=== PATIENT | male | born 1940 | race Asian ===

== ENCOUNTER 2019-07-02 21:50 | Inpatient (IN) | payer MEDICARE, OTHER ==
[~2019-07-02] VITALS: Ht 175.3 cm; Wt 87.3 kg
[2019-07-03] VITALS (7 sets, daily range): BP systolic 95–134; BP diastolic 40–90
--- NOTE | 2019-07-03 | NUR ---
TD RN OPENING NOTE REPORT RECEIVED BY ONEAL FROM [place]. PATIENT ARRIVED IN [facility]. PATIENT IS A/OX4 DANISH SPEAKER. NO SIGN OF DISTRESS OR DISCOMFORT. 02 SAT ON ROOM AIR IS 96%. HAS THREE IV ACCESS, RT FOREARM #20, LT FOREARM #20, AND LT UPPERARM #20 ALL PATENT AND FLUSHED. PATIENT DOES NOT COMPLAIN OF ANY PAIN AT THE MOMENT. SINUS RHYTHM ON THE MONITOR. LUNGS SOUNDS CLEAR. SKIN IS INTACT JUST MINOR COMPUTER CLERK AND BRUISES. ALL SAFETY PRECAUTIONS HAVE BEEN APPLIED, WILL CONTINUE TO MONITOR PATIENT.
[2019-07-03] MEDS ORDERED: LENA5CAP PO (00:47)
[2019-07-03] MEDS ORDERED: ATOR10TA PO (00:47)
[2019-07-03] MEDS ORDERED: CLON2TAB11 PO (00:47)
[2019-07-03] MEDS ORDERED: RANI150C4 PO (00:47)
[2019-07-03] MEDS ORDERED: QUET50TA PO (00:48)
[2019-07-03] MEDS ORDERED: FINA5TAB11 PO (00:48)
[2019-07-03] MEDS ORDERED: ABIR250T PO (00:48)
[2019-07-03] MEDS ORDERED: BICA50TA49 PO (00:48)
[2019-07-03] MEDS ORDERED: AMYL1CAP58 PO (00:48)
[2019-07-03] MEDS ORDERED: RAMI10CA69 PO (00:48)
[2019-07-03] MEDS ORDERED: BUDE90AE IH (00:48)
[2019-07-03] MEDS ORDERED: PRED5TAB48 PO (00:48)
[2019-07-03] MEDS ORDERED: ESOM20CA PO (00:48)
[2019-07-03] MEDS ORDERED: LINA145C PO (00:48)
[2019-07-03] MEDS ORDERED: ACET12.53 PO (00:48)
[2019-07-03] MEDS ORDERED: HYDR-4354 PO (00:48)
[2019-07-03] MEDS ORDERED: HYDROCODONE/APAP 5/325MG 1 EACH TABLET PO PRN (01:30)
[2019-07-03] MEDS ORDERED: MAG HYDROX/AL HYDROX/SIMETH 30 ML UDC PO PRN (01:30)
[2019-07-03] MEDS ORDERED: ONDANSETRON HCL/PF 4 MG/2 ML VIAL IVP PRN (01:30)
[2019-07-03] MEDS ORDERED: ACETAMINOPHEN 325 MG TABLET PO PRN (01:30)
[2019-07-03] MEDS ORDERED: Z GUARD REMEDY 2 OZ OINT TP PRN (01:30)
[2019-07-03] MEDS: IV NS 0.9% 1,000 ML IV SCH ×3 (01:51→20:52)
[2019-07-03 01:53] LABS: BASOPHILS % (AUTO) 1.2 % (0.0-2.0); EOSINOPHILS % (AUTO) 3.3 % (0.0-6.0); HEMATOCRIT 31 % (39-51); HEMOGLOBIN 10.3 g/dL (13.5-17.5); LYMPHOCYTES # (AUTO) 1.4 /CMM (0.8-4.8); LYMPHOCYTES % (AUTO) 34.5 % (20.0-44.0); MEAN CORPUSCULAR HGB CONC 33 g/dl (31.0-36.0); MEAN CORPUSCULAR VOLUME 88 fL (80-96); MONOCYTES # (AUTO) 0.4 /CMM (0.1-1.30); MONOCYTES % (AUTO) 9.8 % (2.0-12.0); NEUTROPHILS % (AUTO) 51.2 % (43.0-81.0); PLATELET COUNT (AUTO) 172 /CMM (150-450); RED BLOOD CELL COUNT(AUTO) 3.51 MIL/uL (4.5-6.0)
[2019-07-03 02:03] LABS: ALBUMIN 2.2 g/dL (3.4-5.0); BILIRUBIN,TOTAL 0.7 mg/dL (0.2-1.0); CALCIUM, SERUM 7.1 mg/dL (8.5-10.1); CREATININE 0.9 mg/dL (0.6-1.3); TOTAL PROTEIN, SERUM 5.2 g/dL (6.4-8.2)
[2019-07-03 02:18] LABS: POTASSIUM 2.8 mmol/L (3.5-5.1)
--- NOTE | 2019-07-03 02:20 | NUR ---
RN NOTE: RECEIVED A CALL FROM LAB, SPOKE WITH Dari LOPEZ+ [id number]. PAGED DR. NEWMAN, AWAITING FOR ORDERS. WILL NOTIFY PRIMARY NURSE. Addendum: 07/03/19 at 0247 by DAVID PAVON RN RN NOTE: 0232: RECEIVED NEW ORDERS FROM DR. NEWMAN.
[2019-07-03] MEDS ORDERED: POTASSIUM CHLORIDE 20 MEQ TAB.PRT.SR PO ONE (03:00)
[2019-07-03] MEDS: POTASSIUM CL. PREMIX PERIPHER. 50 ML IV SCH ×4 (03:33→06:55)
--- NOTE | 2019-07-03 05:56 | NUR ---
RN NOTE MRSA SWAB SAMPLE WAS GIVEN TO JORGE FROM THE LAB.
[2019-07-03] MEDS ORDERED: CODEINE PO SCH (06:00)
[2019-07-03] MEDS ORDERED: ACETAMINOPHEN PO SCH (06:00)
[2019-07-03] MEDS ORDERED: ACETAMINOPHEN W/ CODEINE#3 1 EA TABLET PO PRN (07:00)
--- NOTE | 2019-07-03 07:20 | NUR ---
RN OPENING NOTES PT IS ASLEEP IN BED WITH HOB ELEVATED TO 45 DEGREES. PT HAS ZEB IV 20 GAUGE RUNNING NS @ 100 MLS/HR. PT IS SR IN 67 HR ON TELE MONITOR. PT SHOWS NO SIGNS OF SOB OR PAIN AT PRESENT MOMENT. BED IS LOCKED AND IN LOWEST POSITION WITH CALL LIGHT IN REACH. WILL CONTINUE TO MONITOR.
--- NOTE | 2019-07-03 07:21 | NUR ---
TD RN CLOSING NOTE PATIENT IN BED WITH NO SIGNS OF DISTRESS. PATIENT REMAINS ON 2L OF O2 SATURATING AT 97%. PATIENT ON MONITOR IS SINUS RHYTHM WITH HR IN 60'S/ NO COMPLAINT OF PAIN. ALL SAFETY PRECAUTIONS APPPLIED. ENDORSED PATIENT TO MORNING SHIFT NURSE.
[2019-07-03] MEDS: clonazePAM 1 MG TABLET PO SCH ×2 (08:15→20:49)
[2019-07-03] MEDS: PANTOPRAZOLE 40 MG TABLET.DR PO SCH (08:15)
[2019-07-03] MEDS: FINASTERIDE (5 MG) 5 MG TABLET PO SCH (08:16)
[2019-07-03 08:41] LABS: THYROID STIMULATING HORMONE 2.567 uIU/mL (0.358-3.74)
[2019-07-03] MEDS: LIPASE/PROTEASE/AMYLASE 1 EACH CAPSULE.DR PO SCH ×3 (08:47→18:15)
[2019-07-03] MEDS: ENOXAPARIN SODIUM 40 MG/0.4 ML DISP.SYRIN SQ SCH (09:00)
[2019-07-03] MEDS ORDERED: BICALUTAMIDE 50 MG TABLET PO SCH (09:00)
[2019-07-03] MEDS ORDERED: LENALIDOMIDE 5 MG PO SCH (09:00)
[2019-07-03] MEDS ORDERED: ABIRATERONE ACETATE 250 MG PO SCH (09:00)
[2019-07-03] MEDS ORDERED: BUDESONIDE 90 MCG IH SCH (09:00)
[2019-07-03] MEDS: predniSONE 5 MG TABLET PO SCH (09:45)
[2019-07-03] MEDS: RAMIPRIL 5 MG CAPSULE PO SCH ×2 (09:46→20:49)
[2019-07-03] MEDS: MAGNESIUM HYDROXIDE 30 ML UDC PO PRN (09:48)
[2019-07-03] MEDS: BUDESONIDE RESPULE INH 0.25 MG/2 ML AMPUL.NEB NEB SCH ×2 (10:43→19:37)
--- NOTE | 2019-07-03 10:59 | NUR ---
SPOKE WITH PT ABOUT HOME MEDIATIONS PER PT HE HAS NO ONE AT HOME THAT CAN BRING THEM TO HIM. INFORMED PHARMACY. WILL TRY TO OBTAIN PT'S PERSONAL PHARMACY.
--- NOTE | 2019-07-03 16:00 | NUR ---
PT FRIEND RAY CAME BEDSIDE AND EXPRESSED CONCERN OVER PT LIVING ARRANGEMENT REQUESTED TO MEET WITH BREWERY TECHNICIAN SASKIA SINCE PT LIVES AT HOME ALONE.
[2019-07-03] MEDS: FAMOTIDINE (20 MG) 20 MG TABLET PO SCH (18:15)
--- NOTE | 2019-07-03 18:55 | NUR ---
RN CLOSING NOTES PT DENIES ANY PAIN OR SOB AT PRESENT MOMENT PT IS SR ON TELE MONITOR AND CONTINUES TO BE ON O2 2 L NC. PT HAS NS RUNNING AT 100 MLS/HR. PT IS A&OX4 AND IS ABLE TO MAKE NEEDS KNOWN. BED IS LOCKED AND IN LOWEST POSITION WITH CALL LIGHT IN REACH. WILL ENDORSE EMANUEL TO RETAIL DELIVERY DRIVER RN.
[2019-07-03] MEDS: BICALUTAMIDE 50 MG TABLET PO SCH (20:47)
[2019-07-03] MEDS ORDERED: ATORVASTATIN 10 MG TABLET PO SCH (22:00)
[2019-07-03] MEDS: QUETIAPINE FUMARATE 25 MG TABLET PO SCH (22:00)
[2019-07-04] VITALS: BP_SYST 144; BP_SYST 147; BP_DIAS 65; BP_DIAS 89
[2019-07-04 04:00] VITALS: BP 146/60
--- NOTE | 2019-07-04 06:14 | NUR ---
RN NOTES IN BED RESTING COMFORTABLY WITH NO APPARENT DISTRESS. BREATHING EVEN AND UNLABORED. ON 2 LPM O2 VIA NASAL CANNULA TOLERATING WELL. NO COMPLAINT OF PAIN OR DISCOMFORT. ALERT AND ORIENTED WITH EPISODES OF CONFUSION. ABLE TO VERBALIZE NEEDS. VITAL SIGNS WITH NORMAL LEVEL. KEPT CLEAN AND DRY. WILL ENDORSE TO AM SHIFT FOR CONTINUITY OF CARE.
[2019-07-04 06:24] LABS: BASOPHILS % (AUTO) 0.4 % (0.0-2.0); EOSINOPHILS % (AUTO) 2.9 % (0.0-6.0); HEMATOCRIT 29 % (39-51); HEMOGLOBIN 9.4 g/dL (13.5-17.5); LYMPHOCYTES # (AUTO) 1.3 /CMM (0.8-4.8); LYMPHOCYTES % (AUTO) 28.1 % (20.0-44.0); MEAN CORPUSCULAR HGB CONC 33 g/dl (31.0-36.0); MEAN CORPUSCULAR VOLUME 89 fL (80-96); MONOCYTES # (AUTO) 0.4 /CMM (0.1-1.30); MONOCYTES % (AUTO) 8.8 % (2.0-12.0); NEUTROPHILS # (AUTO) 2.7 /CMM (1.8-8.9); NEUTROPHILS % (AUTO) 59.8 % (43.0-81.0); PLATELET COUNT (AUTO) 151 /CMM (150-450); RED BLOOD CELL COUNT(AUTO) 3.22 MIL/uL (4.5-6.0); WHITE BLOOD COUNT (AUTO) 4.6 K/uL (4.3-11.0)
[2019-07-04 06:37] LABS: ALBUMIN 2.2 g/dL (3.4-5.0); BILIRUBIN,TOTAL 0.5 mg/dL (0.2-1.0); CREATININE 0.6 mg/dL (0.6-1.3); MAGNESIUM 1.9 mg/dL (1.8-2.4); PHOSPHORUS 1.5 mg/dL (2.5-4.9); POTASSIUM 3.4 mmol/L (3.5-5.1); TOTAL PROTEIN, SERUM 5.3 g/dL (6.4-8.2)
[2019-07-04] MEDS: IV NS 0.9% 1,000 ML IV SCH (06:56)
[2019-07-04 08:00] VITALS: BP 145/56
--- NOTE | 2019-07-04 08:00 | NUR ---
TD1/RN AM SHIFT INITIAL NOTES RECEIVED PT AWAKE IN BED, A/O X 4, DENIES ANY SYMPTOMS, NO ACUTE CHANGE OF CONDITION. ON 2L O2 VIA N/C SATURATING @ 99%, RESPIRATIONS EVEN & UNLABORED, LUNG SOUNDS NOTED WITH WHEEZING. NOTED WITH NON-PRODUCTIVE COUGH. ON TELE WITH SINUS RHYTHM, HR 81. PT WITH ON GOING IV INFUSION OF NS @ 100CC/HR, IV SITE, WITH NO S/S OF INFECTION. PT IS COMFORTABLE, SCHEDULED AM MED TO BE GIVEN. CL WITHIN REACHED AND SAFETY MAINTAINED. ON GOING MONITORING.
[2019-07-04] MEDS: BUDESONIDE RESPULE INH 0.25 MG/2 ML AMPUL.NEB NEB SCH ×2 (08:11→20:05)
[2019-07-04] MEDS: predniSONE 5 MG TABLET PO SCH (08:53)
[2019-07-04] MEDS: PANTOPRAZOLE 40 MG TABLET.DR PO SCH (08:53)
[2019-07-04] MEDS: clonazePAM 1 MG TABLET PO SCH ×2 (08:54→21:22)
[2019-07-04] MEDS: LIPASE/PROTEASE/AMYLASE 1 EACH CAPSULE.DR PO SCH ×3 (08:55→18:10)
[2019-07-04] MEDS: RAMIPRIL 5 MG CAPSULE PO SCH ×2 (08:55→21:26)
[2019-07-04] MEDS: FINASTERIDE (5 MG) 5 MG TABLET PO SCH (08:55)
[2019-07-04] MEDS: ENOXAPARIN SODIUM 40 MG/0.4 ML DISP.SYRIN SQ SCH (08:57)
[2019-07-04] MEDS ORDERED: POTASSIUM CHLORIDE 20 MEQ TAB.PRT.SR PO SCH (10:30)
[2019-07-04] MEDS ORDERED: K PHOS NEUTRAL 250 MG TABLET PO ONE (11:00)
--- NOTE | 2019-07-04 11:10 | NUR ---
TD/RN ROUNDS - DR. THURSTON PT SEEN & EXAMINED BY DR. THURSTON. NO NEW ORDERS RECEIVED AT THIS TIME. MONITORING MONITORING.
[2019-07-04 12:00] VITALS: BP 143/78
[2019-07-04] MEDS: LEVALBUTEROL HCL NEB 1.25 MG/0.5 ML VIAL.NEB IH SCH ×3 (13:02→23:31)
[2019-07-04 16:00] VITALS: BP_SYST 109; BP_SYST 137; BP_DIAS 52; BP_DIAS 70
[2019-07-04] MEDS: FAMOTIDINE (20 MG) 20 MG TABLET PO SCH (18:10)
--- NOTE | 2019-07-04 19:35 | NUR ---
WELT EDGE ROUNDER OPENING NOTES, RECEIVED PATIENT FROM AM RN IN BED AWAKE ALERT X 4. HOB ELEVATED TO 45 DEGREES. PATIENT HAS TKO ZEB IV 20 GAUGE. PATIENT IS SR IN 70 HR ON TELE MONITOR. PATIENT SHOWS NO SIGNS OF SOB OR PAIN AT PRESENT MOMENT. BED IS LOCKED AND IN LOWEST POSITION WITH CALL LIGHT IN REACH. WILL CONTINUE TO MONITOR.
--- NOTE | 2019-07-04 19:35 | NUR ---
TELE1/RN AM SHIFT CLOSING NOTES ALL NEEDS MET, NO ACUTE CHANGE OF CONDITION NOTED DURING THE SHIFT. PT ENDORSED TO PM NURSE TO CONTINUE CARE. CL WITHIN REACHED AND SAFETY MAINTAINED.
[2019-07-04 20:00] VITALS: BP 129/42
[2019-07-04] MEDS: BICALUTAMIDE 50 MG TABLET PO SCH (21:23)
[2019-07-04] MEDS: QUETIAPINE FUMARATE 25 MG TABLET PO SCH (21:27)
[2019-07-04] MEDS ORDERED: IV PREMIX 0.45% NS + KCL 1,000 ML IV ONE (22:35)
[2019-07-05] VITALS (7 sets, daily range): BP systolic 121–154; BP diastolic 42–72
[2019-07-05 06:57] LABS: CALCIUM, SERUM 6.9 mg/dL (8.5-10.1); CREATININE 0.6 mg/dL (0.6-1.3); PHOSPHORUS 1.8 mg/dL (2.5-4.9); POTASSIUM 3.2 mmol/L (3.5-5.1)
--- NOTE | 2019-07-05 07:10 | NUR ---
PM PROFILING MACHINE OPERATOR CLOSING NOTES, PATIENT IN BED SLEEPING COMFORTABLY . HOB ELEVATED TO 45 DEGREES. PATIENT HAS IV 20 GAUGE WITH ONGOING 80ML/HR 1/2 NS W 20MEQ. PATIENT IS SR IN 70 HR ON TELE MONITOR. PATIENT SHOWS NO SIGNS OF SOB OR PAIN AT PRESENT MOMENT. BED IS LOCKED AND IN LOWEST POSITION WITH CALL LIGHT IN REACH. WILL ENDORSE THE PATIENT TO AM RN FOR EMANUEL.
[2019-07-05] MEDS: LEVALBUTEROL HCL NEB 1.25 MG/0.5 ML VIAL.NEB IH SCH ×3 (07:40→23:48)
[2019-07-05] MEDS: BUDESONIDE RESPULE INH 0.25 MG/2 ML AMPUL.NEB NEB SCH ×2 (07:40→19:45)
--- NOTE | 2019-07-05 08:00 | NUR ---
TELE 1 RN AM SHIFT OPENING NOTES PT WAS ASLEEP WHEN I RECEIVED HIM. RECEIVED IN SUPINE POSITION WITH THE HOB SLIGHTLY ELEVATED. PT IS AOX4, ON ROOM AIR O2 SAT @ 96%. RESPIRATIONS ARE EVEN AND UNLABORED. LUNG SOUNDS: WHEEZING IS HEARD. ON TELE WITH SINUS RHYTHM. HR AT 79. NO ONGOING IV. IV SITE HAS NO S/S OF INFECTION. PT IS COMFORTABLE RESTING IN BED. CALL LIGHT IN REACH AND SAFETY MAINTAINED. ON GOING MONITORING
[2019-07-05] MEDS: clonazePAM 1 MG TABLET PO SCH ×2 (08:48→20:49)
[2019-07-05] MEDS: PANTOPRAZOLE 40 MG TABLET.DR PO SCH (08:48)
[2019-07-05] MEDS: FINASTERIDE (5 MG) 5 MG TABLET PO SCH (08:48)
[2019-07-05] MEDS: predniSONE 5 MG TABLET PO SCH (08:48)
[2019-07-05] MEDS: LIPASE/PROTEASE/AMYLASE 1 EACH CAPSULE.DR PO SCH ×3 (08:48→17:06)
[2019-07-05] MEDS: ENOXAPARIN SODIUM 40 MG/0.4 ML DISP.SYRIN SQ SCH (08:50)
[2019-07-05] MEDS: MAGNESIUM HYDROXIDE 30 ML UDC PO PRN (08:52)
[2019-07-05] MEDS: RAMIPRIL 5 MG CAPSULE PO SCH ×2 (08:56→20:50)
--- NOTE | 2019-07-05 11:00 | NUR ---
TELE1/RN ROUNDS - DR. MONAHAN PT SEEN & EXAMINED BY TANIYA, NO NEW ORDER RECEIVED AT THIS TIME. MONITORING CONTINUED.
[2019-07-05] MEDS ORDERED: K PHOS NEUTRAL 250 MG TABLET PO ONE (11:30)
--- NOTE | 2019-07-05 13:15 | NUR ---
TELE1/RN UPDATE INFORMATION PRESENTED DR. SORTO WITH RESULT OF CT (FROM [facility]) AND ALSO RESULT OF HGA1C. NO NEW ORDER RECEIVED.
--- NOTE | 2019-07-05 13:47 | NUR ---
TELE1/RN MEDICAL RECORDS OBTAINED MEDICAL RECORDS FROM PT'S OWN PRIMARY DOCTOR, DR. TANIYA KAY. EKG REQUEST FOR [facility] FAXED, AWAITING FOR RESULT TO BE OBTAINED.
--- NOTE | 2019-07-05 14:09 | NUR ---
TELE1/RN ROUNDS NO ACUTE CHANGE OF CONDITION. PT RESTING COMFORTABLY. MONITORING CONTINUED.
[2019-07-05] MEDS: FAMOTIDINE (20 MG) 20 MG TABLET PO SCH (17:05)
--- NOTE | 2019-07-05 18:00 | NUR ---
TELE 1/RN AFTERNOON ROUNDS PATIENT IN STABLE CONDITION, NO ACUTE CHANGES NOTED. PM CARE PROVIDED, TURNED AND REPOSITIONED. MONITORING CONTINUED.
--- NOTE | 2019-07-05 19:17 | NUR ---
TELE 1/RM AM SHIFT CLOSING NOTES ALL PT NEEDS MET, PT IS STABLE. NO ACUTE CHANGE OF PT CONDITION. CALL LIGHT IN REACH. SAFETY MAINTAINED. PATIENT ENDORSED TO PM NURSE TO CONTINUE CARE.
[2019-07-05] MEDS ORDERED: GLYCERIN ADULT 1 SUPP.RECT RC PRN (19:30)
--- NOTE | 2019-07-05 19:35 | NUR ---
PM RN OPENING NOTES, RECEIVED PATIENT IN BED RESTING. HOB SLIGHTLY ELEVATED. PATIENT IS A/O X4, ON ROOM AIR O2 SAT @ 96%. RESPIRATIONS ARE EVEN AND UNLABORED. ON TELE WITH SR. HR AT 79. ONGOING IV @80ML/HR ON RIGHT HAND. IV SITE HAS NO S/S OF INFILTRATION. PATIENT HAS NO COMPLAIN OF PAIN AT THIS TIME. CALL LIGHT WITHIN REACH AND SAFETY MAINTAINED. WILL CONTINUE TO MONITOR.
[2019-07-05] MEDS: BICALUTAMIDE 50 MG TABLET PO SCH (20:56)
--- NOTE | 2019-07-05 23:40 | NUR ---
2340 MADE AWARE OF PATIENT'S REQUEST FOR SLEEPING PILL WITH ORDER TO GIVE TEMAZEPAM 15MG PRN HS FOR INSOMNIA. ORDER NOTED AND CARRIED OUT.
[2019-07-05] MEDS: QUETIAPINE FUMARATE 25 MG TABLET PO SCH (23:48)
[2019-07-06] VITALS: BP 156/74
--- NOTE | 2019-07-06 | NUR ---
PM RN OPENING NOTES, RECEIVED PATIENT IN BED RESTING. HOB SLIGHTLY ELEVATED. PATIENT IS A/O X4, ON ROOM AIR O2 SAT @ 96%. RESPIRATIONS ARE EVEN AND UNLABORED. ON TELE WITH SR. HR AT 79. IV ON RFA, PATENT, NO S/S OF INFILTRATION. PATIENT HAS NO COMPLAIN OF PAIN AT THIS TIME. CALL LIGHT WITHIN REACH AND SAFETY MAINTAINED. WILL CONTINUE TO MONITOR.
[2019-07-06] MEDS: TEMAZEPAM 15 MG CAPSULE PO PRN ×2 (00:25→22:04)
[2019-07-06] MEDS: BUDESONIDE RESPULE INH 0.25 MG/2 ML AMPUL.NEB NEB SCH ×2 (07:40→20:07)
[2019-07-06] MEDS: LEVALBUTEROL HCL NEB 1.25 MG/0.5 ML VIAL.NEB IH SCH ×3 (07:40→22:58)
[2019-07-06 08:00] VITALS: BP 150/69
--- NOTE | 2019-07-06 08:00 | NUR ---
TELE 1/RN AM INITIAL NOTES RECEIVED PATIENT ASLEEP IN BED. RECEIVED IN SUPINE POSITION WITH THE HOB SLIGHTLY ELEVATED. PT IS AOX4, ON NC SET UP AT 1L, O2 SAT @ 98%. RESPIRATIONS ARE EVEN AND UNLABORED. LUNG SOUNDS: WHEEZING IS HEARD. ON TELE WITH SINUS RHYTHM. HR AT 70. IV ON SALINE LOCK. IV SITE HAS NO S/S OF INFECTION. PT IS COMFORTABLE RESTING IN BED. CALL LIGHT IN REACH AND SAFETY MAINTAINED. ON GOING MONITORING
[2019-07-06] MEDS: predniSONE 5 MG TABLET PO SCH ×2 (08:15→09:02)
[2019-07-06] MEDS: FINASTERIDE (5 MG) 5 MG TABLET PO SCH (08:50)
[2019-07-06] MEDS: LIPASE/PROTEASE/AMYLASE 1 EACH CAPSULE.DR PO SCH ×3 (08:50→18:10)
[2019-07-06] MEDS: PANTOPRAZOLE 40 MG TABLET.DR PO SCH (08:54)
[2019-07-06] MEDS: clonazePAM 1 MG TABLET PO SCH ×2 (08:56→21:59)
[2019-07-06] MEDS: RAMIPRIL 5 MG CAPSULE PO SCH ×2 (08:56→22:00)
[2019-07-06] MEDS: ENOXAPARIN SODIUM 40 MG/0.4 ML DISP.SYRIN SQ SCH (08:58)
[2019-07-06] MEDS: FLUTICASONE PROPIONATE 16 GM BOTTLE NS SCH (10:52)
[2019-07-06] MEDS: MONTELUKAST SODIUM (10MG) 10 MG TABLET PO SCH ×2 (10:52→22:06)
[2019-07-06] MEDS: AMOX/CLAVULANATE 875 MG TABLET PO SCH ×2 (10:52→21:59)
--- NOTE | 2019-07-06 11:00 | NUR ---
TELE1/RN PT EVALUATION PT BEING SEEN BY PHYSICAL THERAPIST FOR EVALUATION. Addendum: 07/06/19 at 1129 by WALDEMAR SABA RN ADDENDUM: PT WALKED 40 FEET WITH ASSISTANCE IN FRONT WHEEL WALKER.
--- NOTE | 2019-07-06 11:46 | NUR ---
TELE1/RN ROUNDS - DR. CAGE UPDATED PT'S CONDITION. PT SEEN & EXAMINED BY DR. CAGE. RECEIVED VERBAL ORDER TO DISCONTINUE IV OF KCL 20MEQ @ 80CC/HR. ORDER NOTED AND CARRIED OUT.
[2019-07-06 12:00] VITALS: BP 137/83
[2019-07-06 13:11] LABS: CALCIUM, SERUM 7.9 mg/dL (8.5-10.1); CREATININE 0.7 mg/dL (0.6-1.3)
[2019-07-06 16:00] VITALS: BP 137/67
[2019-07-06] MEDS: FAMOTIDINE (20 MG) 20 MG TABLET PO SCH (18:10)
--- NOTE | 2019-07-06 19:00 | NUR ---
TELE 1/ RN AM CLOSING NOTES ALL PT NEEDS MET. NO ACUTE CHANGE OF CONDITION THROUGHOUT THE SHIFT. PT ENDORSED TO PM NURSE TO CONTINUE CARE. CL WITHIN REACH AND SAFETY MAINTAINED.
[2019-07-06 20:00] VITALS: BP 154/67
[2019-07-06] MEDS: QUETIAPINE FUMARATE 25 MG TABLET PO SCH (21:59)
[2019-07-06] MEDS: BICALUTAMIDE 50 MG TABLET PO SCH (22:04)
[2019-07-07] VITALS: BP 149/73
[2019-07-07 04:00] VITALS: BP 160/71
--- NOTE | 2019-07-07 07:04 | NUR ---
PM RN CLOSING NOTES, PATIENT IN BED RESTING. HOB SLIGHTLY ELEVATED. PATIENT IS A/O X4, ON ROOM AIR O2 SAT @ 96%. RESPIRATIONS ARE EVEN AND UNLABORED. ON TELE WITH SR. HR AT 79. IV ON RFA, NO IV RUNNING. PATENT, NO S/S OF INFILTRATION. PATIENT HAS NO COMPLAIN OF PAIN AT THIS TIME. CALL LIGHT WITHIN REACH AND SAFETY MAINTAINED. WILL ENDORSE PATIENT TO AM RN FOR EMANUEL.
--- NOTE | 2019-07-07 07:55 | NUR ---
RN OPENING NOTES RECEIVED PATIENT RESTING IN BED COMFORTABLY. HE IS AOX4, VERBAL, AND IS UNSTEADY. HE IS ON RA, TOLERATING WELL, NO S/SX OF RESP DISTRESS OR SOB. TELE MONITOR IS READING SR. NO EDEMA. SKIN IS INTACT. PT IS STATING HE WANTS A SALDAÑA CATH INSERTED BECAUSE HE NEEDS TO URINATED OFTEN, WILL PUT CONDOM CATH. RFA 22 G IS PATENT AND INTACT. HE IS ON CARDIAC DIET, TOLERATING WELL. SAFETY MEASURES HAVE BEEN IMPLEMENTED, CALL LIGHT IS WITHIN REACH, BED IS IN LOWEST AND LOCKED POSITION, SIDE RAILS UP X2, WILL CONTINUE TO MONITOR FOR ANY CHANGE.
[2019-07-07 08:00] VITALS: BP 151/75
[2019-07-07] MEDS: ENOXAPARIN SODIUM 40 MG/0.4 ML DISP.SYRIN SQ SCH (08:23)
[2019-07-07] MEDS: predniSONE 5 MG TABLET PO SCH (08:24)
[2019-07-07] MEDS: FLUTICASONE PROPIONATE 16 GM BOTTLE NS SCH (08:24)
[2019-07-07] MEDS: AMOX/CLAVULANATE 875 MG TABLET PO SCH (08:24)
[2019-07-07] MEDS: clonazePAM 1 MG TABLET PO SCH (08:24)
[2019-07-07] MEDS: LIPASE/PROTEASE/AMYLASE 1 EACH CAPSULE.DR PO SCH ×2 (08:24→13:48)
[2019-07-07] MEDS: RAMIPRIL 5 MG CAPSULE PO SCH (08:25)
[2019-07-07] MEDS: PANTOPRAZOLE 40 MG TABLET.DR PO SCH (08:25)
[2019-07-07] MEDS: FINASTERIDE (5 MG) 5 MG TABLET PO SCH (08:25)
[2019-07-07] MEDS: BUDESONIDE RESPULE INH 0.25 MG/2 ML AMPUL.NEB NEB SCH (08:26)
[2019-07-07] MEDS: LEVALBUTEROL HCL NEB 1.25 MG/0.5 ML VIAL.NEB IH SCH (08:27)
[2019-07-07] MEDS ORDERED: MONT10TA22 PO (11:25)
[2019-07-07] MEDS ORDERED: Amox/Clavulanate PO (11:25)
[2019-07-07] MEDS ORDERED: BUDE0.25 NEB (11:25)
[2019-07-07] MEDS ORDERED: PRED5TAB PO (11:25)
[2019-07-07 12:00] VITALS: BP 135/69
--- NOTE | 2019-07-07 16:44 | NUR ---
RN NOTES PATIENT HAS BEEN DISCHARGED TO [facility] FOR CONTINUITY OF CARE. HE LEFT IN STABLE CONDITION VIA EMT. EXIT CARE WAS UTILIZED DURING DC PROCESS. PATIENT HAD GOOD UNDERSTANDING OF HEALTH, IV SITE WAS REMOVED, PT REFUSED TO SIGN BELONGINGS LIST. PT HAD CELLPHONE, E LEARNING DESIGNER, COLOGNE, AND FOOD WITH HIM. REPORT WAS GIVEN TO
== END 2019-07-07 15:38 | DRG 308 ==
LOC: TELE-TD 23:42 → TELE1 07-04 12:15
PROVIDERS: ADMIT Internal Medicine; ATTEND Internal Medicine
DX: I48.91 Unspecified atrial fibrillation (principal); G93.41 Metabolic encephalopathy; N17.0 Acute kidney failure with tubular necrosis; D68.59 Other primary thrombophilia; E87.2 Acidosis; C79.51 Secondary malignant neoplasm of bone; E46 Unspecified protein-calorie malnutrition; E86.0 Dehydration; F41.9 Anxiety disorder, unspecified; Z85.46 Personal history of malignant neoplasm of prostate; E78.5 Hyperlipidemia, unspecified; I95.9 Hypotension, unspecified; C61 Malignant neoplasm of prostate; I10 Essential (primary) hypertension; J47.9 Bronchiectasis, uncomplicated; F32.9 Major depressive disorder, single episode, unspecified; D64.9 Anemia, unspecified; J45.909 Unspecified asthma, uncomplicated; J32.9 Chronic sinusitis, unspecified; E11.9 Type 2 diabetes mellitus without complications; F03.90 Unspecified dementia, unspecified severity, without behavioral disturbance, psychotic disturbance, mood disturbance, and anxiety; E87.6 Hypokalemia; Z68.28 Body mass index [BMI] 28.0-28.9, adult; Z87.891 Personal history of nicotine dependence
CPT/HCPCS: 36415; 70220-TC; 71045-TC; 80048-TC; 80053-TC; 80061-TC; 82728-TC; 83540-TC; 83605-TC; 83735-TC; 84100-TC; 84439-TC; 84443-TC; 84484-TC; 85025-TC; 85610-TC; 85730-TC; 87081-TC; 93307-TC; 94799-TC; 97110-TC; 97116-TC; 97530-TC; A4349; A6253; G0378; J1650; J3480; J3490; J7030; J7512